=== PATIENT | male | born 1975 | race Caucasian/White ===

== ENCOUNTER 2025-02-11 18:40 | Inpatient (IN) | payer BC ==
[2025-02-11] MEDS ORDERED: Sodium Chloride 0.9% 20 ML SDV IV PRN (18:53)
[2025-02-11] MEDS: Aspirin 81 MG Tab.Chew PO ONE (19:09)
[2025-02-11] MEDS: Sodium Chloride 0.9% 2.5 ML Syringe FLUSH PRN (19:10)
[2025-02-11] MEDS: Sodium Chloride 0.9% 10 ML Syringe FLUSH PRN (19:10)
[2025-02-11 19:12] LABS: BASOPHILS ABSOLUTE AUTO 0.05 K/uL (0.00-0.20); BASOPHILS PERCENT AUTO 0.4 % (0.0-1.0); EOSINOPHILS ABSOLUTE AUTO 0.15 K/uL (0.00-0.45); EOSINOPHILS PERCENT AUTO 1.2 % (0.0-6.0); HEMATOCRIT 48.3 % (42.0-52.0); HEMOGLOBIN 16.7 g/dL (14.0-18.0); IMMATURE GRAN ABSOLUTE AUTO 0.04 K/uL (0.00-0.05); IMMATURE GRAN PERCENT AUTO 0.3 % (0.0-0.4); LYMPHOCYTES ABSOLUTE AUTO 1.55 K/uL (1.00-4.80); MEAN CORPUSCULAR HEMOGLOBIN 29.3 pg (28.0-32.0); MEAN CORPUSCULAR HGB CONC 34.6 g/dL (32.0-36.0); MEAN CORPUSCULAR VOLUME 84.7 fL (83.0-99.0); MEAN PLATELET VOLUME 9.5 fL (9.4-12.4); MONOCYTES ABSOLUTE AUTO 0.78 K/uL (0.00-0.80); NEUTROPHILS ABSOLUTE AUTO 10.36 K/uL (1.80-7.70); NEUTROPHILS PERCENT AUTO 80.1 % (41.0-71.0); PLATELET COUNT,PLT 260 K/uL (150-400); WHITE BLOOD CELL COUNT,WBC 12.93 K/uL (3.9-11.3)
[2025-02-11] MEDS: Sodium Chloride 0.9% 1,000 ML IV ONE ×2 (19:29→22:25)
[2025-02-11 19:38] LABS: A/G RATIO 1.3 (0.9-1.6); ALBUMIN 4.5 g/dL (3.4-5.0); BILIRUBIN TOTAL 0.6 mg/dL (0.2-1.0); CALCIUM 9.4 mg/dL (8.5-10.1); CARBON DIOXIDE,CO2 28.7 mmol/L (21.0-32.0); CREATININE 1.1 mg/dL (0.8-1.3); EST CRCL DRUG DOSING (CG) 79.45 mL/min; MAGNESIUM 1.8 mg/dL (1.8-2.4); POTASSIUM,K 3.9 mmol/L (3.5-5.1); PROTEIN TOTAL,TP 7.9 g/dL (6.4-8.2)
[2025-02-11 20:05] LABS: LACTIC ACID 0.5 mmol/L (0.4-2.0)
[2025-02-11] MEDS: Iopamidol 755 MG/ML 500 ML Multipack Bottle IVPUSH ONE (20:46)
[2025-02-11] MEDS: Clindamycin Phosphate in D5W 600 MG in Premix Bag 1 BAG IV ONE (22:10)
[2025-02-11] MEDS: methylPREDNISolone Sodium Succinate 125 MG/2 ML SDV IVPUSH ONE (22:10)
[2025-02-11] MEDS ORDERED: Acetaminophen 650 MG Supp RECTAL PRN (22:13)
[2025-02-11] MEDS ORDERED: Polyethylene Glycol 3350 Powder 17 GM Packet PO PRN (22:13)
[2025-02-11] MEDS ORDERED: Phenol 1.4% Oral Spray 177 ML Bottle MUCMEM PRN (22:13)
[2025-02-11] MEDS ORDERED: Acetaminophen 325 MG Tab PO PRN (22:13)
[2025-02-11] MEDS ORDERED: Albuterol/Ipratropium 3.0-0.5 MG/3 ML Neb Soln NEB PRN (22:13)
[2025-02-11] MEDS ORDERED: Ondansetron 4 MG/2 ML SDV IVPUSH PRN (22:13)
[2025-02-11] MEDS ORDERED: Melatonin 3 MG Tab PO PRN (22:13)
[2025-02-11] MEDS: Ampicillin/Sulbactam Na 3 GM in Sodium Chloride 0.9% 100 ML IV ONE (22:25)
[2025-02-11] MEDS: VANCOmycin 1.25 GM in Sodium Chloride 0.9% 250 ML IV SCH (23:35)
[2025-02-11 23:51] LABS: AMPHETAMINES SCREEN, URINE NEGATIVE (CUTOFF=500); BARBITURATE SCREEN,URINE NEGATIVE (CUTOFF=200); BENZODIAZEPINES SCREEN,URINE NEGATIVE (CUTOFF=150); BUPRENORPHINE SCREEN,URINE NEGATIVE (CUTOFF=10); METHADONE SCREEN, URINE NEGATIVE (CUTOFF=200); METHAMPHETAMINES SCREEN, URINE NEGATIVE (CUTOFF=500); OXYCODONE SCREEN,URINE NEGATIVE (CUT0FF=100); PCP SCREEN,URINE NEGATIVE (CUTOFF=25); THC SCREEN,URINE 20 NG/ML NEGATIVE (CUTOFF=50)
[2025-02-12] MEDS ORDERED: Ampicillin/Sulbactam Na 3 GM in Sodium Chloride 0.9% 100 ML IV SCH
[2025-02-12] MEDS: Sodium Chloride 0.9% 1,000 ML IV SCH (00:44)
[2025-02-12] MEDS ORDERED: Ampicillin/Sulbactam Na 3 GM in Sodium Chloride 0.9% 100 ML IV ONE (04:00)
[2025-02-12] MEDS: Ketorolac 30 MG/ML SDV IV SCH (04:04)
[2025-02-12] MEDS: Ampicillin/Sulbactam Na 3 GM in Sodium Chloride 0.9% 100 ML IV SCH (04:05)
[2025-02-12 06:10] LABS: BASOPHILS ABSOLUTE AUTO 0.01 K/uL (0.00-0.20); BASOPHILS PERCENT AUTO 0.1 % (0.0-1.0); HEMATOCRIT 45.4 % (42.0-52.0); HEMOGLOBIN 15.7 g/dL (14.0-18.0); IMMATURE GRAN ABSOLUTE AUTO 0.04 K/uL (0.00-0.05); IMMATURE GRAN PERCENT AUTO 0.4 % (0.0-0.4); LYMPHOCYTES ABSOLUTE AUTO 0.91 K/uL (1.00-4.80); LYMPHOCYTES PERCENT AUTO 8.5 % (24.0-44.0); MEAN CORPUSCULAR HEMOGLOBIN 29.5 pg (28.0-32.0); MEAN CORPUSCULAR HGB CONC 34.6 g/dL (32.0-36.0); MEAN CORPUSCULAR VOLUME 85.2 fL (83.0-99.0); MEAN PLATELET VOLUME 9.9 fL (9.4-12.4); MONOCYTES ABSOLUTE AUTO 0.08 K/uL (0.00-0.80); MONOCYTES PERCENT AUTO 0.7 % (0.0-8.0); NEUTROPHILS ABSOLUTE AUTO 9.63 K/uL (1.80-7.70); NEUTROPHILS PERCENT AUTO 90.3 % (41.0-71.0); PLATELET COUNT,PLT 250 K/uL (150-400); RED BLOOD CELL COUNT 5.33 M/uL (4.52-5.90); WHITE BLOOD CELL COUNT,WBC 10.67 K/uL (3.9-11.3)
[2025-02-12 06:31] LABS: CALCIUM 8.9 mg/dL (8.5-10.1); CARBON DIOXIDE,CO2 26.1 mmol/L (21.0-32.0); CREATININE 1.2 mg/dL (0.8-1.3); EST CRCL DRUG DOSING (CG) 72.83 mL/min; MAGNESIUM 1.9 mg/dL (1.8-2.4); POTASSIUM,K 3.8 mmol/L (3.5-5.1)
[2025-02-12] MEDS ORDERED: Benzocaine 20% Topical Spray UD MUCMEM PRN (10:35)
[2025-02-12] MEDS: Nicotine 14 MG/24 Hr Patch TRDERM SCH (10:42)
[2025-02-12] MEDS: Enoxaparin 40 MG/0.4 ML Syringe SUBCUT SCH (10:43)
== END 2025-02-12 15:15 | disposition home or self-care (01) | DRG 113 ==
LOC: MW.ED 18:40 → MW.MS 22:19
PROVIDERS: ADMIT Family Medicine; ATTEND Family Medicine
DX: J03.80 Acute tonsillitis due to other specified organisms (principal); Z86.16 Personal history of COVID-19; K21.9 Gastro-esophageal reflux disease without esophagitis; I10 Essential (primary) hypertension
CPT/HCPCS: 36415; 70491; 70491-26; 71045; 71045-26; 71275; 71275-26; 80048; 80053; 80305; 82550; 83605; 83735; 83880; 84484; 85025; 85379; 86308; 87040; 87428-QW; 87651; 93005; 96361; 96374; 96375; 99284; 99285-25; A9270-GY; J0295; J0736; J1650; J1885; J2919; J3371; J7030; J7050; Q9967